=== PATIENT | male | born 1955 | race Caucasian/White ===

== ENCOUNTER 2024-01-13 00:59 | Inpatient (IN) | payer OTHER, SELFPAY ==
[~2024-01-13] VITALS: Ht 170.2 cm; Wt 111.0 kg
[2024-01-13] VITALS (12 sets, daily range): BP systolic 118–178; BP diastolic 59–110; TEMP 97.6–98; O2SAT 88–94
[2024-01-13 01:56] LABS: VENOUS BASE EXCESS -1.4 (-2.0-2.0); VENOUS HCO3 24.1 MMOL/L (23.0-27.0); VENOUS PARTIAL PRESSURE CO2 43.6 mmHg (38.0-50.0); VENOUS PARTIAL PRESSURE O2 62.2 mmHg (30.0-50.0); VENOUS PH 7.361 UNITS (7.330-7.430); VENOUS STANDARD HCO3 23.1 MMOL/L; VENOUS TOTAL CO2 25.5 MMOL/L (24.0-28.0)
[2024-01-13 02:03] LABS: BASO # 0.1 10^3/uL (0.0-0.2); BASO % 0.7 % (0.0-1.0); EOS # 0.3 10^3/uL (0.0-0.5); EOS % 4.4 % (0.0-3.0); HEMATOCRIT 38.6 % (42.0-52.0); HEMOGLOBIN 12.9 g/dl (13.5-17.5); LYMPH # 2.6 10^3/uL (1.5-5.0); LYMPH % 33.3 % (24.0-44.0); MEAN CORPUSCULAR HEMOGLOBIN 35.1 pg (27.0-33.0); MEAN CORPUSCULAR HGB CONC 33.4 g/dl (32.0-36.5); MEAN CORPUSCULAR VOLUME 105.2 fl (80.0-96.0); MONO # 0.8 10^3/uL (0.0-0.8); MONO % 9.8 % (2.0-8.0); NEUTROPHILS # 3.9 10^3/uL (1.5-8.5); NEUTROPHILS % 51.3 % (36.0-66.0); PLATELET COUNT, AUTOMATED 244 10^3/uL (150-450); RED BLOOD COUNT 3.67 10^6/uL (4.30-6.10); WHITE BLOOD COUNT 7.7 10^3/uL (4.0-10.0)
[2024-01-13 03:15] LABS: ALBUMIN 3.4 G/DL (3.2-5.2); BILIRUBIN,DIRECT 0.1 MG/DL (<0.4); BILIRUBIN,TOTAL 0.5 MG/DL (0.3-1.2); CREATININE FOR GFR 1.32 MG/DL (0.70-1.30); GLOMERULAR FILTRATION RATE 57.3 (>49); POTASSIUM SERUM 3.5 MMOL/L (3.5-5.1)
[2024-01-13] MEDS ORDERED: ISOVUE-370 76% 100ML VIAL As Ordered ONE (04:17)
[2024-01-13 04:27] LABS: ABG BASE EXCESS -1.4 (-2.0-2.0); ABG HCO3 24.8 MMOL/L (22.0-26.0); ABG O2 SATURATION 97.5 % (95.0-99.0); ABG PARTIAL PRESSURE CO2 47.5 mmHg (35.0-45.0); ABG PARTIAL PRESSURE O2 114.2 mmHg (75.0-100.0); ABG STANDARD HCO3 23.3 MMOL/L. (22.0-26.0); ABG TOTAL CO2 26.3 MMOL/L (23.0-31.0); ABG pH (ARTERIAL) 7.336 UNITS (7.350-7.450)
[2024-01-13 05:02] LABS: CK-MB VALUE MASS 2.5 NG/ML (<3.6)
[2024-01-13 05:03] LABS: MB/CK RELATIVE INDEX 2.77 (< OR =4)
[2024-01-13 05:14] LABS: ETHYL ALCOHOL (ETHANOL) 0.258 % (0.000-0.010)
[2024-01-13] MEDS: cefTRIAXone SOD 2 GM in D5W MINI-BAG PLUS 50 ML IV ONE (05:55)
[2024-01-13] MEDS ORDERED: MELO15TA28 PO (05:58)
[2024-01-13] MEDS ORDERED: TRAZ-186 PO (05:59)
[2024-01-13] MEDS ORDERED: ACETAMINOPHEN TAB 650MG DOSE (2X325MG) PO PRN (06:10)
[2024-01-13] MEDS ORDERED: ALBUTEROL SULFATE 2.5MG/0.5ML INH NEB SOLN NEB PRN (06:10)
[2024-01-13] MEDS ORDERED: HOME MED LIST COMPLETE! XX SCH (06:10)
[2024-01-13] MEDS: IPRATROPIUM 0.5MG/ALBUTEROL 2.5MG INH SOL UD 3ML (DUONEB) NEB SCH (07:00)
[2024-01-13] MEDS: methylPREDNISolone 125MG 2ML VIAL IV SCH (07:06)
[2024-01-13] MEDS: KCL 20MEQ in NS 1000ML 1,000 ML IV SCH (07:06)
[2024-01-13] MEDS: DOXYCYCLINE HYCLATE 100MG TABLET PO SCH (08:54)
[2024-01-13] MEDS: ENOXAPARIN 40MG/0.4ML SYRINGE (J1650 PER 10MG) SC SCH (08:54)
[2024-01-13] MEDS: MULTIVITAMINS/MINERALS THERAP 1 TAB PO SCH (08:54)
[2024-01-13] MEDS: FOLIC ACID 1MG TAB PO SCH (08:54)
[2024-01-13] MEDS: THIAMINE 100 MG TAB PO SCH (08:54)
[2024-01-13] MEDS: guaiFENesin ER TABLET 600 MG TAB PO SCH (08:55)
[2024-01-13 09:22] LABS: C REACTIVE PROTEIN QUANTITATIV 0.6 MG/DL (<1.0)
[2024-01-13 09:31] LABS: PROCALCITONIN 0.06 ng/ml
[2024-01-13 13:06] LABS: ABG BASE EXCESS -3.8 (-2.0-2.0); ABG HCO3 21.7 MMOL/L (22.0-26.0); ABG O2 SATURATION 91.6 % (95.0-99.0); ABG STANDARD HCO3 21.2 MMOL/L. (22.0-26.0); ABG pH (ARTERIAL) 7.342 UNITS (7.350-7.450)
[2024-01-13] MEDS: metroNIDAZOLE (FLAGYL) 500MG TABLET PO SCH (14:13)
[2024-01-13] MEDS: amLODIPine 5 MG TAB PO ONE (16:05)
[2024-01-13] MEDS: LORazepam 2 MG TAB PO PRN (21:11)
[2024-01-14] VITALS (14 sets, daily range): BP systolic 117–136; BP diastolic 57–63; TEMP 96.7–98.3; O2SAT 88–96
[2024-01-14] MEDS: cefTRIAXone SOD 1 GM in D5W MINI-BAG PLUS 50 ML IV SCH (05:02)
[2024-01-14 05:24] LABS: BASO % 0.2 % (0.0-1.0); HEMATOCRIT 39.8 % (42.0-52.0); HEMOGLOBIN 12.9 g/dl (13.5-17.5); LYMPH # 0.7 10^3/uL (1.5-5.0); MEAN CORPUSCULAR HEMOGLOBIN 34.1 pg (27.0-33.0); MEAN CORPUSCULAR HGB CONC 32.4 g/dl (32.0-36.5); MEAN CORPUSCULAR VOLUME 105.3 fl (80.0-96.0); MONO # 1.3 10^3/uL (0.0-0.8); MONO % 13.7 % (2.0-8.0); NEUTROPHILS # 7.5 10^3/uL (1.5-8.5); NEUTROPHILS % 78.6 % (36.0-66.0); PLATELET COUNT, AUTOMATED 241 10^3/uL (150-450); RED BLOOD COUNT 3.78 10^6/uL (4.30-6.10); WHITE BLOOD COUNT 9.5 10^3/uL (4.0-10.0)
[2024-01-14 05:40] LABS: BLOOD UREA NITROGEN 31 MG/DL (9-23); CALCIUM LEVEL 9.9 MG/DL (8.3-10.6); CARBON DIOXIDE LEVEL 28 MMOL/L (20-31); CHLORIDE LEVEL 106 MMOL/L (98-107); CREATININE FOR GFR 1.16 MG/DL (0.70-1.30); GLOMERULAR FILTRATION RATE > 60.0 (>49); GLUCOSE, FASTING 99 MG/DL (74-106); MAGNESIUM LEVEL 1.8 MG/DL (1.8-2.4); POTASSIUM SERUM 4.2 MMOL/L (3.5-5.1); SODIUM LEVEL 141 MMOL/L (136-145)
[2024-01-14] MEDS: SENOKOT S TAB PO SCH (08:35)
[2024-01-14] MEDS: amLODIPine 5 MG TAB PO SCH (08:38)
[2024-01-14] MEDS: predniSONE 20 MG TAB PO SCH (08:38)
[2024-01-14] MEDS ORDERED: THIA100TA PO (09:18)
[2024-01-14] MEDS ORDERED: DOXY100T PO (09:18)
[2024-01-14] MEDS ORDERED: AMLO1TAB24 PO (09:18)
[2024-01-14] MEDS ORDERED: CEFD1CAP9 PO (09:18)
[2024-01-14] MEDS ORDERED: FOLI1TAB11 PO (09:18)
[2024-01-14] MEDS ORDERED: VENTAER INH (09:18)
[2024-01-14] MEDS ORDERED: PRED10TA2 PO (09:18)
[2024-01-14] MEDS ORDERED: THERTAB52 PO (09:18)
== END 2024-01-14 13:12 | disposition home or self-care (01) | DRG 189 ==
LOC: M ED 00:59 → M ED INP 06:09 → M PCU 14:52
PROVIDERS: ADMIT Preventive Medicine Undersea and Hyperbaric Medicine; ATTEND Internal Medicine
DX: J96.01 Acute respiratory failure with hypoxia (principal); J18.9 Pneumonia, unspecified organism; J44.1 Chronic obstructive pulmonary disease with (acute) exacerbation; E87.20 Acidosis, unspecified; J96.02 Acute respiratory failure with hypercapnia; G47.33 Obstructive sleep apnea (adult) (pediatric); I10 Essential (primary) hypertension; Z91.119 Patient's noncompliance with dietary regimen due to unspecified reason; R94.4 Abnormal results of kidney function studies; Z91.013 Allergy to seafood; Z79.899 Other long term (current) drug therapy; Z87.891 Personal history of nicotine dependence; E66.9 Obesity, unspecified; I16.0 Hypertensive urgency; Z77.090 Contact with and (suspected) exposure to asbestos; F10.229 Alcohol dependence with intoxication, unspecified